=== PATIENT | male | born 1995 | race Two or more races ===

== ENCOUNTER → 2017-09-18 | Emergency (ER) | payer OTHER ==
[~2017-09-18] VITALS: Ht 170.2 cm; Wt 81.6 kg
== END | disposition left against medical advice (07) ==
LOC: ER 12:17
DX: Z53.20 Procedure and treatment not carried out because of patient's decision for unspecified reasons (principal)

== ENCOUNTER 2022-03-18 11:13 | Outpatient (CLI) | payer OTHER | END 2022-03-18 15:57 | disposition home or self-care (01) | LOC: RAD 11:13 | PROVIDERS: ATTEND Radiology Diagnostic Radiology | DX: S69.92XA Unspecified injury of left wrist, hand and finger(s), initial encounter (principal) ==